=== PATIENT | female | born 2000 | race Hispanic/Latino ===

== ENCOUNTER 2023-06-15 03:41 | Emergency (ER) | payer OTHER ==
[~2023-06-15] VITALS: Ht 152.4 cm; Wt 49.9 kg
[2023-06-15] MEDS ORDERED: TETANUS IMMUNE GLOBULIN 250 UNIT SYRINGE IM ONE (04:00)
[2023-06-15] MEDS: LIDOCAINE HCL 1% 20 ML VIAL INJ SCH (04:30)
[2023-06-15] MEDS ORDERED: CEPH500B PO (04:46)
[2023-06-15] MEDS: TETANUS/DIPHTHERIA TOXOID [ADULT] 0.5 ML VIAL IM ONE (04:47)
[2023-06-15 04:52] VITALS: BP 123/70; PULSE 85; RESP 18; O2SAT 99
== END 2023-06-15 04:53 | disposition home or self-care (01) ==
LOC: EDH 03:41
DX: S81.811A Laceration without foreign body, right lower leg, initial encounter (principal); W22.8XXA Striking against or struck by other objects, initial encounter; Y93.89 Activity, other specified; Y92.89 Other specified places as the place of occurrence of the external cause; Y99.8 Other external cause status
CPT/HCPCS: 73590; 90471; 90714